=== PATIENT | female | born 1995 | race Caucasian/White ===

== ENCOUNTER 2021-05-16 08:55 | Emergency (ER) | payer OTHER, SELFPAY ==
[2021-05-16 09:22] VITALS: BP 131/78; PULSE 80; RESP 14; TEMP 36.4; O2SAT 99; BMI 25.9
[2021-05-16 10:28] LABS: Add Manual Diff / Slide Review NO; Basophils Absolute Auto 100 /uL (0-100); Basophils Percent Auto 0.7 % (0-2); Eosinophils Absolute Auto 100 /uL (0-450); Eosinophils Percent Auto 1.7 % (2-4); Hematocrit 38.9 % (36-46); Hemoglobin 13.1 g/dL (12.0-16.0); Lymphocytes Absolute Auto 1800 /uL (1100-4500); Lymphocytes Percent Auto 25.1 % (25-40); Mean Corpuscular HGB Conc 33.6 % (30-36); Mean Corpuscular Hemoglobin 29.8 PG (26-34); Mean Corpuscular Volume 88.8 fL (80-100); Monocytes Absolute Auto 400 /uL (0-900); Monocytes Percent Auto 5.7 % (3-14); Neutrophils Absolute Auto 4800 /uL (1500-7000); Neutrophils Percent Auto 66.8 % (50-75); Platelet Count 254 X10^3/uL (150-400); Red Blood Cell Count 4.38 X10^6/uL (4.0-5.2); Red Cell Distribution Width 13.4 % (11.6-14.8); White Blood Cell Count 7.2 X10^3/uL (4.5-11.0)
[2021-05-16 10:35] LABS: Appearance Urine UA CLEAR; Bilirubin Urine UA NEGATIVE (NEGATIVE); Color Urine UA ORANGE; Glucose Urine UA NEGATIVE (Negative); Ketones Urine UA NEGATIVE (NEGATIVE); Leukocyte Esterase Urine UA 2+ (NEGATIVE); Nitrite Urine UA POSITIVE (Negative); Occult Blood Urine UA 3+ (Negative); Protein Urine UA 2+ (Negative); Urobilinogen Urine UA 0.2 E.U./dL (0.2)
[2021-05-16 10:46] LABS: pH Urine UA 6.5 (4.5-8.0)
[2021-05-16 10:46] LABS: Alanine Aminotransferase 43 IU/L (<35); Albumin 4.5 g/dL (3.5-5.0); Albumin Globulin Ratio 1.6 (1.0-2.8); Alkaline Phosphatase 72 U/L (38-126); Aspartate Aminotransferase 39 IU/L (14-36); BUN Creatinine Ratio 15.9 (6-22); Bilirubin Total 0.7 mg/dL (0.2-1.3); Blood Urea Nitrogen 10 mg/dL (7-17); Calcium 9.5 mg/dL (8.4-10.2); Carbon Dioxide 26 mmol/L (22-32); Chloride 104 mmol/L (98-107); Estimated Glomerular Filt Rate > 60.0 mL/min (>60); Globulin 2.8 g/dL (1.7-4.1); Glucose 87 mg/dL (70-100); HEMOLYSIS < 15 (0-50); Lipase 134 U/L (23-300); Potassium 3.8 mmol/L (3.4-5.1); Sodium 137 mmol/L (137-145); Total Protein 7.3 g/dL (6.3-8.2)
[2021-05-16 10:47] LABS: Bacteria Urine Many (>30); Culture Indicated Urine Specimen Cultured; RBC Urine 5-10/HPF (0-5/HPF); Squamous Epithelial Cell Urine 1-5 /HPF (0-5/HPF); WBC Urine 30-100/HPF (0-5/HPF)
[2021-05-16 10:55] LABS: COVID19 -Nasal RAPID Negative (Negative)
--- NOTE | 2021-05-16 11:10 | ED_ITS ---
HPI - Female Genitourinary General Chief complaint: Vaginal Bleeding Stated complaint: VAGINAL BLEEDING SENT BY MARLA Time Seen by Provider: 05/16/21 10:09 Source: patient Mode of arrival: Wheelchair Limitations: no limitations History of Present Illness HPI Narrative: 26-year-old woman with a history of PCOS, chronic pelvic pain, severe menorrhagia with significant anxiety over the source of her pain, the medical system in general with prior misdiagnosis and mistreatment/ mismanagement. She has been seen by Dr. Hatfield, full evaluation was done and exploratory laparoscopy is scheduled for next week with presumed diagnosis of endometriosis. she has had significant pain over the last number of days and st arted having vaginal bleeding yesterday. She is terrified that this bleeding is a sign of life-threatening diagnosis as her regular menstrual cycle never starts before the of the month. She was seen at [facility] emergency room yesterday and her interpretation of that visit left her even more anxious. Her interpretation was that she would if she did not have surgery but she chose to not have surgery. She was also very upset that the chief nuclear medicine technologist touched her too much and she was very comfortable with that. We had a long discussion regarding all of this. I did ask for medical records but they have not yet arrived. My best interpretation at this point was that ovarian torsion was part of their differential and the welding systems and equipment repairer was not able to fully evaluate the left ovary. The patient and her partner chose to leave [facility] she had very little sleep overnight. She has not eaten on the off chance that she does in fact have a torsion will need emergency surgery today. She comes looking for further diagnosis and reassurance. Related Data Home Medications Medication Instructions Recorded Confirmed fluoxetine 60 mg tablet 30 mg PO DAILY 05/02/21 05/16/21 hydromorphone 2 mg PO Q6HR PRN 05/16/21 05/16/21 Previous Rx's Medication Instructions Recorded diclofenac sodium 75 mg 75 mg PO BID PRN #30 tab 05/05/21 tablet,delayed release lorazepam [Ativan] 0.5 mg PO DAILY PRN #14 tab 05/16/21 Allergies Allergy/AdvReac Type Severity Reaction Status Date / Time Sulfa (Sulfonamide Allergy Hives Verified 05/02/21 11:44 Antibiotics) Couldnt Breathe Review of Systems Review of Systems Narrative: Pertinent positive and negative findings as per HPI Remainder of review of systems is otherwise unremarkable for Constitutional: Fevers, chills, weakness ENT: No sore throat, neck pain, ear pain CV: Chest pain, palpitations, Respiratory: Cough, wheeze, dyspnea GI: Nausea, vomiting, diarrhea, : Dysuria, hematuria, Patient History Medical History Endometriosis (~2008) Ovarian cyst (~2008) Painful menstrual periods (~2008) Partial blindness (~2018) Tinnitus (~2018) Surgical History History of laparoscopy S/P tonsillectomy and adenoidectomy tobacco type: cigarettes and vaping alcohol intake frequency: 0-2 drinks per day Substance Use Type: marijuana Exam Narrative Exam Narrative: General: Healthy appearing, very anxious with dramatic affective behavior. Well-nourished well-developed Respiratory: Lungs are clear to auscultation, no wheezing no rales no rhonchi. Full and symmetrical air movement Cardiac: Regular rate and rhythm no murmurs no bruits Abdomen: Soft, left lower pelvic pain without rebound or guarding. good bowel tones, no flank pain Skin: Warm and dry, no rashes Neurologic: Grossly neurologically intact with no obvious asymmetries or abnormalities Psych: very anxious with anxiety impairing ability to understand information being conveye Initial Vital Signs Initial Vital Signs: Vital Signs Temperature 97.6 F 05/16/21 09:22 Pulse Rate 80 05/16/21 09:22 Respiratory Rate 14 05/16/21 09:22 Blood Pressure 131/78 05/16/21 09:22 Pulse Oximetry 99 05/16/21 09:22 Course Orders Ordered: ED Orders 05/16/21 10:00 Urinalysis and Microscopic Stat Urine Culture Stat 05/16/21 10:04 COVID19 -Nasal swab/Pre-Proc Stat 05/16/21 10:21 Complete Blood Count AUTO DIFF Stat Comprehensive Metabolic Panel Stat Lipase Stat 05/16/21 11:35 US pelvic complete Stat Discontinued Medications Sodium Chloride (Normal Saline 0.9%) 1,000 mls @ 1,000 mls/hr IV BOLUS ONE Stop: 05/16/21 10:33 Last Infusion: 05/16/21 15:14 Dose: 100 mls/hr Documented by: Admin: 05/16/21 11:41 Dose: 1,000 mls/hr Documented by: KIKE Ceftriaxone Sodium 1,000 mg/ (Sodium Chloride) 100 mls @ 200 mls/hr IV NOW ONE Stop: 05/16/21 11:18 Last Infusion: 05/16/21 15:01 Dose: 0 mls/hr Documented by: Admin: 05/16/21 13:05 Dose: 200 mls/hr Documented by: CARLITOS Ketorolac Tromethamine (Ketorolac 30 Mg/Ml Vial) 15 mg IV NOW ONE Stop: 05/16/21 11:18 Last Admin: 05/16/21 11:42 Dose: 15 mg Documented by: KIKE Lorazepam (Lorazepam 2 Mg/Ml Inj) 1 mg IV NOW ONE Stop: 05/16/21 11:36 Last Admin: 05/16/21 11:43 Dose: 1 mg Documented by: KIKE Ondansetron HCl (Ondansetron 4 Mg/2 Ml Inj) 4 mg IV NOW ONE Stop: 05/16/21 11:18 Last Admin: 05/16/21 11:43 Dose: 4 mg Documented by: KIKE Vital Signs Vital signs: Vital Signs - 8 hr 05/16/21 13:11 05/16/21 15:18 Temperature 98.0 F Pulse Rate 72 90 Respiratory Rate 16 16 Blood Pressure 125/81 Pulse Oximetry 99 99 MDM - Female Genitourinary Medical Records Attestation: I reviewed the patient's medical records. Lab Data Attestation: I reviewed the patient's lab results. Result diagrams: 05/16/21 10:21 05/16/21 10:21 Labs: Lab Results 05/16/21 05/16/21 05/16/21 Range/Units 10:00 10:04 10:21 WBC 7.2 (4.5-11.0) X10^3/uL RBC 4.38 (4.0-5.2) X10^6/uL Hgb 13.1 (12.0-16.0) g/dL Hct 38.9 (36-46) % MCV 88.8 (80-100) fL MCH 29.8 (26-34) PG MCHC 33.6 (30-36) % RDW 13.4 (11.6-14.8) % Plt Count 254 (150-400) X10^3/uL Neut % (Auto) 66.8 (50-75) % Lymph % (Auto) 25.1 (25-40) % [place] % (Auto) 5.7 (3-14) % Eos % (Auto) 1.7 L (2-4) % Baso % (Auto) 0.7 (0-2) % Neut # (Auto) 4800 (9182-5980) /uL Lymph # (Auto) 1800 (3805-4522) /uL [place] # (Auto) 400 (0-900) /uL Eos # (Auto) 100 (0-450) /uL Baso # (Auto) 100 (0-100) /uL Sodium (137-145) mmol/L Potassium (3.4-5.1) mmol/L Chloride (98-107) mmol/L Carbon Dioxide (22-32) mmol/L BUN (7-17) mg/dL Creatinine (0.52-1.04) mg/dL Estimated GFR (>60) mL/min BUN/Creatinine Ratio (6-22) Glucose (70-100) mg/dL Calcium (8.4-10.2) mg/dL Total Bilirubin (0.2-1.3) mg/dL AST (14-36) IU/L ALT (<35) IU/L Alkaline Phosphatase (38-126) U/L Total Protein (6.3-8.2) g/dL Albumin (3.5-5.0) g/dL Globulin (1.7-4.1) g/dL Albumin/Globulin Ratio (1.0-2.8) Lipase (23-300) U/L Urine Color [place] Urine Appearance Clear Urine pH 6.5 (4.5-8.0) Ur Specific [place] 1.010 (1.000-1.035) Urine Protein 2+ H (Negative) Urine Glucose (UA) Negative (Negative) g/dL Urine Ketones Negative (NEGATIVE) Urine Occult Blood 3+ H (Negative) Urine Nitrate Positive H (Negative) Urine Bilirubin Negative (NEGATIVE) Urine Urobilinogen 0.2 (0.2) E.U./dL Ur Leukocyte Esterase 2+ H (NEGATIVE) Urine RBC 5-10/hpf H (0-5/HPF) Urine WBC 30-100/hpf H (0-5/HPF) Ur Squamous Epith Cells 1-5 /hpf (0-5/HPF) Urine Bacteria Many (>30) H (None) Ur Culture Indicated? Specimen cultured SARS-CoV-2 (PCR) Negative (Negative) 05/16/21 Range/Units 10:21 WBC (4.5-11.0) X10^3/uL RBC (4.0-5.2) X10^6/uL Hgb (12.0-16.0) g/dL Hct (36-46) % MCV (80-100) fL MCH (26-34) PG MCHC (30-36) % RDW (11.6-14.8) % Plt Count (150-400) X10^3/uL Neut % (Auto) (50-75) % Lymph % (Auto) (25-40) % [place] % (Auto) (3-14) % Eos % (Auto) (2-4) % Baso % (Auto) (0-2) % Neut # (Auto) (2448-7762) /uL Lymph # (Auto) (0486-7015) /uL [place] # (Auto) (0-900) /uL Eos # (Auto) (0-450) /uL Baso # (Auto) (0-100) /uL Sodium 137 (137-145) mmol/L Potassium 3.8 (3.4-5.1) mmol/L Chloride 104 (98-107) mmol/L Carbon Dioxide 26 (22-32) mmol/L BUN 10 (7-17) mg/dL Creatinine 0.63 (0.52-1.04) mg/dL Estimated GFR > 60.0 (>60) mL/min BUN/Creatinine Ratio 15.9 (6-22) Glucose 87 (70-100) mg/dL Calcium 9.5 (8.4-10.2) mg/dL Total Bilirubin 0.7 (0.2-1.3) mg/dL AST 39 H (14-36) IU/L ALT 43 H (<35) IU/L Alkaline Phosphatase 72 (38-126) U/L Total Protein 7.3 (6.3-8.2) g/dL Albumin 4.5 (3.5-5.0) g/dL Globulin 2.8 (1.7-4.1) g/dL Albumin/Globulin Ratio 1.6 (1.0-2.8) Lipase 134 (23-300) U/L Urine Color Urine Appearance Urine pH (4.5-8.0) Ur Specific [place] (1.000-1.035) Urine Protein (Negative) Urine Glucose (UA) (Negative) g/dL Urine Ketones (NEGATIVE) Urine Occult Blood (Negative) Urine Nitrate (Negative) Urine Bilirubin (NEGATIVE) Urine Urobilinogen (0.2) E.U./dL Ur Leukocyte Esterase (NEGATIVE) Urine RBC (0-5/HPF) Urine WBC (0-5/HPF) Ur Squamous Epith Cells (0-5/HPF) Urine Bacteria (None) Ur Culture Indicated? SARS-CoV-2 (PCR) (Negative) Point of Care Testing Test Results Negative Imaging Data transvaginal ultrasound: Radiologist's Impression: FINDINGS: Uterus: Uterus is normal in size at 6.9 x 3.5 x 4.2 cm. The endometrium measures 1-2 mm in combined thickness. Ovaries: The right ovary measures 4.2 x 2.4 x 2.8 cm. The left ovary measures 2.5 x 1.1 x 1.9 cm. The ovaries have a normal sonographic appearance. No adnexal masses are seen. Normal appearing arterial waveforms are confirmed to each ovary, yet the left ovarian waveform is not ideally displayed. Other: No pathologic free abdominal or pelvic fluid. The transabdominal images are limited, secondary to poor bladder prep. IMPRESSION: Negative for ovarian torsion. No imaging explanation is found for this patient's presenting symptoms. Note: Concordant preliminary findings given by the oral pathologist upon the completion of the examination to Dr. Moreno. Dictated by: Jad Serna M.D. on 05/16/2021 at 11:59 MDM Narrative Medical decision making narrative: 26-year-old woman with chronic pelvic pain, early menstrual cycle and concerned that she is going to from an ovarian torsion. Reassurance is given. She responded well to Toradol, a small dose of Ativan to help with anxiety. Ultrasound is performed and shows no evidence of ovarian torsion. All findings are reviewed with patient and her partner. Questions are answered. At this point they are are reassured, pain is slightly better controlled and she is happy to be discharged home in anticipation of returning on Wednesday for her scheduled exploratory laparoscopy on Wednesday. She is safe for home discharge at this time Discharge Plan Departure Patient Disposition: Home Clinical Impression: Pelvic pain, Dysmenorrhea, Vaginal bleeding, Anxiety Instructions: DI for Dysmenorrhea Activity Restrictions/Additional Instructions: thank you for coming in today not understanding what is happening is quite frightening. At this time, you do not have an ovarian torsion. You do not have an ectopic and you do not have an indication for emergent surgery today. The vaginal bleeding is something to be noted but you are not anemic and it is okay to treat this as regular menstrual bleeding knowing that you have surgery scheduled next week. Please continue all of your usual medications. As you been having so much pain and so much increased anxiety over the last days I am going to suggest that you use .5 mg of Ativan up to once a day to help keep you a bit more grounded so you are more in control of your reactions to your environment I wish you the very best and I hope your surgery goes well Prescriptions: New lorazepam [Ativan] 0.5 mg tablet 0.5 mg PO DAILY PRN (Reason: anxiety) Qty: 14 RF: 0 No Action diclofenac sodium 75 mg tablet,delayed release (DR/EC) 75 mg PO BID PRN (Reason: pain) Qty: 30 RF: 0 fluoxetine 60 mg tablet 30 mg PO DAILY RF: 0 hydromorphone 2 mg tablet 2 mg PO Q6HR PRN (Reason: Pain (Scale Score 1-3)) RF: 0 Referrals: Ann Narvaez MD [Primary Care Provider] -
--- NOTE | 2021-05-16 11:35 | DI.US.S_ITS ---
PROCEDURE: US PELVIC COMPLETE INDICATIONS: ? LEFT OVARIAN TORSION TECHNIQUE: Real-time scanning was performed of the pelvic organs, with image documentation. Additional endovaginal scanning was necessary due to incomplete visualization of the adnexal and endometrial structures by transabdominal scanning. COMPARISON: [facility], US, US PELVIC COMPLETE WITH TRANSVAGINAL, 04/08/2021, 16:24. [facility], US, US PELVIC COMPLETE, 05/02/2021, 12:03. FINDINGS: Uterus: Uterus is normal in size at 6.9 x 3.5 x 4.2 cm. The endometrium measures 1-2 mm in combined thickness. Ovaries: The right ovary measures 4.2 x 2.4 x 2.8 cm. The left ovary measures 2.5 x 1.1 x 1.9 cm. The ovaries have a normal sonographic appearance. No adnexal masses are seen. Normal appearing arterial waveforms are confirmed to each ovary, yet the left ovarian waveform is not ideally displayed. Other: No pathologic free abdominal or pelvic fluid. The transabdominal images are limited, secondary to poor bladder prep. IMPRESSION: Negative for ovarian torsion. No imaging explanation is found for this patient's presenting symptoms. Note: Concordant preliminary findings given by the optometrist president/practice owner upon the completion of the examination to Dr. Moreno. Dictated by: Jad Serna M.D. on 05/16/2021 at 11:59 Approved by: Jad Serna M.D. on 05/16/2021 at 12:02
[2021-05-16] MEDS: SODIUM CHLORIDE 0.9% 1,000 ML 1000 ML IV (11:41)
[2021-05-16] MEDS: KETOROLAC 30 MG/ML VIAL 15 MG IV (11:42)
[2021-05-16] MEDS: ONDANSETRON 4 MG/2 ML INJ IV (11:43)
[2021-05-16] MEDS: LORazepam 2 MG/ML INJ 1 MG IV (11:43)
[2021-05-16] MEDS: cefTRIAXone 1,000 MG in SODIUM CHLORIDE 0.9% 100 ML 200 ML IV (13:05)
[2021-05-16 13:11] VITALS: PULSE 72; RESP 16; O2SAT 99
--- NOTE | 2021-05-16 15:17 | PC.NURSE ---
patient's IV fluids not infusing well due to up against a valve. Patient drinking po fluids well
[2021-05-16 15:18] VITALS: BP 125/81; PULSE 90; RESP 16; TEMP 36.7; O2SAT 99
== END 2021-05-16 15:20 | disposition home or self-care (01) ==
PROVIDERS: Emergency Provider Emergency Medicine; PCP Student in an Organized Health Care Education/Training Program
DX: R10.2 Pelvic and perineal pain (principal); N94.6 Dysmenorrhea, unspecified; N93.9 Abnormal uterine and vaginal bleeding, unspecified; F41.9 Anxiety disorder, unspecified; Z20.822 Contact with and (suspected) exposure to COVID-19
CPT/HCPCS: 76830; 76856; 80053; 81001; 81025; 83690; 85025; 87086; 87635; 96361; 96365; 96366; 96375; 99284; C9803; J0696; J1885; J2060; J2405

== ENCOUNTER → 2021-05-19 09:41 | Outpatient (CLI) | payer OTHER, SELFPAY ==
[2021-05-19 12:44] LABS: COVID19 -Nasal RAPID Negative (Negative)
== END ==
PROVIDERS: PCP Student in an Organized Health Care Education/Training Program; Referring Provider Obstetrics & Gynecology; Visit Provider Obstetrics & Gynecology
DX: Z01.812 Encounter for preprocedural laboratory examination (principal); Z20.822 Contact with and (suspected) exposure to COVID-19
CPT/HCPCS: 87635

== ENCOUNTER 2021-05-20 08:16 | Day surgery (SDC) | payer OTHER, SELFPAY ==
[2021-05-19 14:52] VITALS: BMI 36.3
[2021-05-20] VITALS (12 sets, daily range): BP systolic 108–132; BP diastolic 63–91; PULSE 46–81; RESP 8–78; TEMP 36.2–37.5; O2SAT 94–100; BMI 36.3
--- NOTE | 2021-05-20 07:34 | SUR.PREOP ---
0733: left on pts cell phone regarding insurance approval and that her case was back on the schd for today. Advised her of ck-in time and procedure start time and to call if this was going to work.
[2021-05-20] MEDS: LACTATED RINGERS 1,000 ML 100 ML IV (08:56)
--- NOTE | 2021-05-20 09:10 | SUR.OPER ---
Lithotomy on padded OR bed, head on pillow, arms secured on padded arm boards at <90 degrees abduction. Legs secured in padded yellow fins stirrups.
--- NOTE | 2021-05-20 09:16 | PM.HP.1 ---
History of Present Illness History of Present Illness Date Patient Seen: 05/20/21 Time Patient Seen: 09:17 Chief complaint: SDC Narrative: Patient is a 26-year-old 0 who presents for a diagnostic laparoscopy, possible fulguration of endometriosis, possible lysis of adhesions, and removal of ovarian cysts. This is being done due to pelvic pain, history of ruptured appendix, and ovarian cyst. Patient History Medical History (Updated 05/19/21 @ 14:59 by Milly Angeles RN) Endometriosis (~2008) Ovarian cyst (~2008) Painful menstrual periods (~2008) Partial blindness (~2018) PCOS (polycystic ovarian syndrome) Tinnitus (~2018) Surgical History (Updated 05/19/21 @ 14:59 by Milly Angeles RN) History of laparoscopic appendectomy History of laparoscopy (~2015) S/P tonsillectomy and adenoidectomy Family & Social History Social History: household members spouse Tobacco & Substance use: Tobacco type e-cigarettes Smoking Status Current some day smoker alcohol intake current alcohol intake frequency holiday/special occasion Substance Use Type marijuana,opiates Meds Home Medications and Allergies Home Medications Medication Instructions Recorded Confirmed Type fluoxetine 60 mg tablet 30 mg PO DAILY 05/02/21 05/19/21 History diclofenac sodium 75 mg 75 mg PO BID PRN #30 tab 05/05/21 05/19/21 Rx tablet,delayed release lorazepam [Ativan] 0.5 mg PO DAILY PRN #14 tab 05/16/21 05/19/21 Rx oxycodone 10 mg tablet 10 mg PO Q8H PRN #20 tab 05/19/21 Rx quetiapine 50 mg PO BEDTIME 05/20/21 05/20/21 History Allergies Allergy/AdvReac Type Severity Reaction Status Date / Time Sulfa (Sulfonamide Allergy Hives Verified 05/20/21 08:32 Antibiotics) Couldnt Breathe Iodine and Iodide Containing AdvReac Intermediate Hives Verified 05/20/21 08:32 Produc Exam Vital Signs (past 8 hours): - 05/20/21 08:38 Temperature 97.6 F Pulse Rate 78 Respiratory Rate 78 H Blood Pressure 132/88 Pulse Oximetry 100 Oxygen Delivery Method Room Air Narrative Exam Narrative: HEENT: No thyromegaly, no anterior cervical or supraclavicular lymphadenopathy. Lungs:Clear to auscultation bilaterally, no wheezes. Cardiovascular: Regular rate and rhythm, no murmurs, rubs, or gallops. Abdomen: Well-healed laparoscopy scars. No hepatosplenomegaly. No masses palpable. External genitalia: Normal Vagina: Normal Cervix: Nulliparous Bimanual exam: 7 Week size uterus. Mobile. Assessment & Plan Assessment & Plan narrative: Assessment: 26-year-old 0 with pelvic pain, ovarian cysts, previous history of ruptured appendix Plan: Diagnostic laparoscopy with possible lysis of adhesions, possible fulguration of endometriosis, and removal of ovarian cysts The risks, benefits, and alternatives to the procedure were explained to the patient. The risks including bleeding, infection, injury to the bowel, bladder, or ureters. She understands these risks and agrees to proceed. A full par Q was held and consent form was signed. COVID-19 COVID-19 status: Negative Result date/Date tested (Pos, Neg/Pending): 05/19/21 Time Spent With Patient Time with patient: 15-24 minutes
--- NOTE | 2021-05-20 09:21 | PM.PREOP ---
Pre-operative Note COVID-19 COVID-19 status: Negative Result date/Date tested (Pos, Neg/Pending): 05/19/21 Interval Note History & Physical reviewed/Exam performed by Physician: Yes Changes to H&P: No H&P completed within 30 days and has changed as indicated here:: 05/20/21
[2021-05-20] MEDS: ACETAMINOPHEN IV 1,000 MG/100 ML VIAL 400 MG IV (09:45)
[2021-05-20] MEDS: BUPIVACAINE 0.5% (PF) VIAL 30 ML INJ (10:25)
[2021-05-20] MEDS: EPINEPHrine 1 MG/ML SUBCUT (10:28)
--- NOTE | 2021-05-20 10:59 | PM.GYNOP.1 ---
Operative Date/Time/Diagnoses Date of procedure: 05/20/21 Time of procedure: 10:59 Pre-op diagnosis: Pelvic pain History of ruptured appendix History of ovarian cyst Post-op diagnosis: same Procedure & Clinicians Procedure: Procedures Operation Date: 05/20/21 09:15 Actual Procedures Side Surgeon p diagnostic laparoscopy Saba Hatfield MD Indications: Pelvic pain History of ruptured appendix History of ovarian cyst Surgeon: Saba Hatfield Anesthesia Type: General and Local Operative Notes Findings: 6 week size slightly retroverted uterus Normal tubes and ovaries On the right ovary there was evidence of recent ovulation Normal liver and gallbladder No pelvic adhesions No evidence of endometriosis on the uterus, tubes, ovaries, bladder peritoneum, or bilateral ovarian fossa Closure Type: primary Specimen(s): none Estimated blood loss (mL): 5 Blood products transfused: none Procedure in detail: After informed consent was obtained, the patient was taken to the operating room where she was placed in the dorsal supine position. After adequate general endotracheal anesthesia was achieved, she was placed in the dorsal lithotomy position, and prepped and draped in the usual sterile fashion. A time-out was performed. A bivalve speculum was placed into the vagina and the anterior lip of the cervix was grasped with a single-tooth tenaculum. The cervical os was sequentially dilated until the Zumi uterine manipulator could pass easily into the endometrial cavity. The single-tooth tenaculum was removed from the anterior lip of the cervix. The bivalve speculum was removed from the vagina. Attention was turned to the abdomen where 6 cc of 0.5% Marcaine with epinephrine were injected in the umbilical fold. A 5 mm incision was made. The Veress needle was placed into the peritoneal cavity, and its placement confirmed by aspiration and drop test. The abdominal cavity was insufflated with 4.2 L of CO2. The Veress needle was removed, and a 5 mm trocar was placed without difficulty. A second incision was made 4 cm left of midline after 6 cc of 0.5% Marcaine with epinephrine were injected. A 5 mm incision was made. A 5 mm trocar was placed under direct visualization. Using the probe, the anterior and posterior cul-de-sacs were examined and there was no evidence of endometriosis. Bilateral ovaries were examined and were normal. The bilateral ovarian fossas were normal without evidence of endometriosis. The upper abdomen was examined and there was no evidence of endometriosis. There was no endometriosis along the uterosacral ligaments or the bladder flap. The instruments were removed from the abdomen. The CO2 was allowed to escape. The incisions were repaired with 4-0 Monocryl in a subcuticular fashion. Steri-Strips were placed. Allevyn dressings were placed. The Zumi uterine manipulator was removed from the uterus. Sponge, lap, and instrument counts were correct x2. Patient tolerated the procedure well, and was taken to PACU in stable condition. Complications: none Post-operative Condition: stable Disposition: PACU Plan for aftercare: Home after recovery
[2021-05-20] MEDS: OXYCODONE IR 5 MG TABLET PO ×2 (11:09→11:39)
== END 2021-05-20 12:07 | disposition home or self-care (01) ==
PROVIDERS: PCP Student in an Organized Health Care Education/Training Program; Referring Provider Obstetrics & Gynecology; Visit Provider Obstetrics & Gynecology
PROC: (CPT 49320; principal; 2021-05-20 09:15)
DX: R10.2 Pelvic and perineal pain (principal)
CPT/HCPCS: 49320; J0131; J0171; J1100; J1885; J2250; J2405; J2704; J3010

== ENCOUNTER → 2021-11-12 14:34 | Outpatient (CLI) | payer OTHER, SELFPAY ==
[2021-11-12 15:06] LABS: COVID19 -Nasal RAPID Negative (Negative)
== END ==
PROVIDERS: PCP Student in an Organized Health Care Education/Training Program; Visit Provider Specialist
DX: Z01.812 Encounter for preprocedural laboratory examination (principal); Z20.822 Contact with and (suspected) exposure to COVID-19
CPT/HCPCS: 87635

== ENCOUNTER 2021-11-13 07:39 | Day surgery (SDC) | payer OTHER, SELFPAY ==
[2021-11-11 14:19] VITALS: BMI 36.3
[2021-11-13] VITALS (10 sets, daily range): BP systolic 122–145; BP diastolic 66–85; PULSE 92–117; RESP 14–18; TEMP 35.9–37.3; O2SAT 93–99; BMI 36.3
--- NOTE | 2021-11-13 | PATH_ITS ---
[facility] Accession Number: [id number] . 01 Material submitted: . uterus - UTERUS, BILATERAL TUBES AND OVARIES . 02 Diagnosis: Uterus, Bilateral Tubes and Ovaries, Laparoscopic Supracervical Hysterectomy with Bilateral Salpingo-oophorectomy (Weight 68 grams): Endocervix with no significant histomorphologic abnormality. Proliferative endometrium; negative for glandular hyperplasia, cytologic atypia, or malignancy. Myometrium with no significant histomorphologic abnormality. Uterine serosa with no significant histomorphologic abnormality. Right ovary with multiple cystic follicles (1-9 mm) and with a hemorrhagic corpus luteum cyst (9 mm). Right fallopian tube with no significant histomorphologic abnormality. Left ovary with a benign serous cyst (1.2 cm) and with multiple cystic follicles (1-9 mm). Left fallopian tube with a disrupted fimbriated end at gross examination; negative for atypia or malignancy. [facility] 11/17/2021 1113 Local . 02 Electronically signed: . Elaine Ludwig MD, Pathologist NPI- [id number] . 01 Gross description: . The specimen is received in formalin labeled uterus, tubes and ovaries, and consists of a 68 gram supracervically resected uterus with attached bilateral fallopian tubes and ovaries. The specimen measures 4.3 cm from superior fundus to lower uterine segment x 4.0 cm from cornu to cornu x 2.5 cm from anterior to posterior. Opening reveals a 2.8 x 1.5 cm endometrial cavity with a pinon-pink endometrium measuring 0.1 cm in thickness. The myometrium is pinon-pink and trabeculated, measuring 1.8 cm in thickness. The serosa is pinon-pink and smooth. The right ovary measures 4.4 x 2.6 x 2.0 cm and the left ovary measures 4.2 x 2.0 x 1.6 cm. The external surfaces are pinon-pink, smooth and cerebriform. Sectioning reveals multiple pinon to pinon-pink smooth walled cysts containing hemorrhagic and mucoid material. The cysts range from 0.1 to 1.9 cm. No papillary excrescences are identified. The right fallopian tube measures 5.5 cm in length x 1.0 cm in diameter. The left fallopian tube measures 3.0 cm in length x 0.8 cm in diameter. The serosa is pinon-pink to pink-purple and smooth to ragged. The fimbriated end of the left fallopian tube is disrupted. Sectioning reveals a pinon-pink mucosa and a stellate lumen measuring 0.4 cm in diameter. Coffee Bar Attendant sections are submitted. . A1 - Anterior lower uterine segment. A2 - Posterior lower uterine segment. A3-A4 - Anterior uterus, full thickness sections. A5-A6 - Posterior uterus, full thickness sections. A7-A8 - Coffee Bar Attendant right ovary. A9 - Right fallopian tube, hospital insurance representative cross sections and bisected fimbria. A10-A11 - Coffee Bar Attendant left ovary. A12 - Left fallopian tube, hospital insurance representative cross sections and bisected tip. ([id number]) /[facility] 11/14/2021 1754 Local . 02 Pathologist provided ICD-10: N94.6 . 02 CPT . 798400 Performed at: 01 [facility] [address] [place] [address] [id number] MD Acosta Baltazar MD Phone: [phone] Performed at: [facility] [address] [place] [address] [id number] MD Blanca Ozuna MD Phone: [phone]
[2021-11-13] MEDS: LACTATED RINGERS 1,000 ML 100 ML IV ×3 (08:30→12:41)
[2021-11-13] MEDS: CEFAZOLIN 2 GM/20 ML SYRINGE IV (09:10)
--- NOTE | 2021-11-13 09:17 | PM.PREOP ---
Pre-operative Note COVID-19 COVID-19 status: Negative Result date/Date tested (Pos, Neg/Pending): 11/12/21 Interval Note History & Physical reviewed/Exam performed by Physician: Yes Changes to H&P: No H&P completed within 30 days and has changed as indicated here:: 11/03/21
--- NOTE | 2021-11-13 10:07 | SUR.OPER ---
Lithotomy on padded OR bed. [place] Pad Positioner under torso. Head on pillow, arms padded and tucked at sides. Legs secured in padded yellow fins stirrups.
[2021-11-13] MEDS: EPINEPHrine 1 MG/ML 0.15 MG INJ (10:13)
[2021-11-13] MEDS: BUPIVACAINE 0.5% (PF) VIAL 30 ML INJ ×2 (10:14→10:30)
[2021-11-13] MEDS: ROPIVACAINE 0.2% PF 2 MG/ML 10ML AMP 20 ML INJ (10:58)
--- NOTE | 2021-11-13 11:35 | P.OP_ITS ---
Operative Date/Time/Diagnoses Date of procedure: 11/13/21 Time of procedure: 11:35 Pre-op diagnosis: Severe dysmenorrhea Recent Demi-Danlos syndrome diagnosis H/O ovarian cysts Post-op diagnosis: same Procedure & Clinicians Procedure: Procedures Operation Date: 11/13/21 09:15 Actual Procedure Side Surgeon p Laparoscopic Supracervical Hysterectomy W. bilateral salpingo-oophorectomy Bilateral Saba Hatfield MD Indications: Severe dysmenorrhea Surgeon: Saba Hatfield Topographical Engineer: Emma Goel Anesthesia Type: General and Local Operative Notes Findings: 6 week size anteverted uterus Normal tubes and ovaries Normal liver and gallbladder Closure Type: primary Specimen(s): left tube & ovary, right tube & ovary and uterus Applied: catheter (Removed at end of the case) Estimated blood loss (mL): 20 Blood products transfused: none Procedure in detail: The patient was taken to the operating room where she was placed in the dorsal supine position. After adequate general endotracheal anesthesia was achieved, she was placed in the dorsal lithotomy position, and prepped and draped in the usual sterile fashion. A timeout was performed. A bivalve speculum was placed into the vagina and the anterior lip of the cervix grasped with a single-tooth tenaculum. The cervical os was sequentially dilated until the ZUMI uterine manipulator could pass easily into the endometrial cavity. The single-tooth tenaculum was removed from the anterior lip of the cervix, and the bivalve speculum was removed from the vagina. Attention was then turned to the abdomen where 6 mL of half percent Marcaine with epinephrine were injected in the umbilical fold. A 5 mm incision was made. The veress needle was placed into the peritoneal cavity, and its placement confirmed by aspiration and drop test. The veress needle was removed. A 5 mm trocar was placed without difficulty. 2 other incisions were made 4 cm lateral to the umbilicus after 5 mL of half percent Marcaine with epinephrine were injected. These were 5 mm incisions. Two, 5 mm trochars were placed under direct visualization. The right tube and ovary were grasped with an atraumatic grasper. Using the plasma kinetic with settings of 40 W the mesosalpinx was cauterized and cut all the way down to the cornua of the uterus. The cornua of the uterus was then grasped with an atraumatic grasper. The utero-ovarian ligaments were cauterized and cut. The round ligament and broad ligament were cauterized and cut with plasma kinetic. Hemostasis was achieved. The bladder flap was created using the plasma kinetic with cautery and cut [facility] across. The uterine arteries on the right side were extensively cauterized with plasma kinetic. All of this was repeated on the left side. The remainder of the bladder flap was created using the plasma kinetic, and the bladder taken down off the lower uterine segment and cervix. Using the [place], the cervix was amputated from the uterus 2 cm above the uterosacral ligaments, after the ZUMI uterine manipulator was removed from the uterus and a moistened sponge stick was placed in the vagina. There was a small amount of bleeding noted from the posterior edge of the cervix, and this was cauterized for hemostasis. 6 mL of half percent Marcaine with epinephrine were injected above the pubic symphysis. A 12mm incision was made. A 12 mm trocar was placed under direct visualization. An Endobag was placed through the suprapubic incision and the uterus, tubes and ovaries were placed into the Endobag. The uterus was morcellated in approximately 10 pieces. The tubes and ovaries were also removed from the Endobag. The Endobag was removed from the peritoneal cavity. The pelvis was copiously irrigated with warm normal saline. No bleeding was noted. 20 mL of 0.2% ropivacaine were placed over the pelvic pedicles. The instruments were removed from the abdomen. The CO2 was allowed to escape. The trocars were removed from the abdomen. The suprapubic incision was closed on the fascia with 0 Vicryl. All of the incisions were closed with 4-0 Biosyn in a subcuticular fashion. Steri strips, 2x2's and op sites were placed over the incisions. The moistened sponge stick was removed from the vagina. Sponge, lap, and instrument counts were correct x 2. The patient tolerated the procedure well, was taken to PACU in stable condition. Complications: none Post-operative Condition: stable Disposition: PACU Plan for aftercare: Home after recovery
[2021-11-13] MEDS: hydrOXYzine 50 MG/ML INJ IM (11:46)
[2021-11-13] MEDS: LORazepam 2 MG/ML INJ 0.5 MG IV (11:47)
[2021-11-13] MEDS: OXYCODONE/ACETAMINOPHEN 5/325 TABLET 1 TAB PO (13:46)
== END 2021-11-13 13:49 | disposition home or self-care (01) ==
LOC: OR 07:40 → AC 11:34
PROVIDERS: PCP Student in an Organized Health Care Education/Training Program; Referring Provider Obstetrics & Gynecology; Visit Provider Obstetrics & Gynecology
PROC: 0UT94ZL Resection of Uterus, Supracervical, Percutaneous Endoscopic Approach (ICD-10-PCS; CPT 58542; principal; 2021-11-13 09:15)
DX: N94.6 Dysmenorrhea, unspecified (principal); Q79.60 Ehlers-Danlos syndrome, unspecified; F17.210 Nicotine dependence, cigarettes, uncomplicated; N83.11 Corpus luteum cyst of right ovary; N83.02 Follicular cyst of left ovary; N83.01 Follicular cyst of right ovary
CPT/HCPCS: 58542; 81025; J0171; J0690; J1100; J1885; J2060; J2250; J2405; J2704; J2795; J3010; J3410